=== PATIENT | female | born 1985 | race Caucasian/White ===

== ENCOUNTER → 2016-11-17 | Outpatient (REF) | payer BC | LOC: M LAB REF 19:34 | PROVIDERS: ATTEND Physician Assistant Medical | DX: J02.9 Acute pharyngitis, unspecified (principal) ==

== ENCOUNTER → 2017-10-25 | Outpatient (REF) | payer BC | LOC: M LAB REF 16:37 | PROVIDERS: ATTEND Physician Assistant Medical | DX: R53.83 Other fatigue (principal) ==

== ENCOUNTER → 2017-12-24 | Outpatient (REF) | payer BC | LOC: M LAB REF 12:11 | DX: R30.0 Dysuria (principal) | CPT/HCPCS: 87086 ==

== ENCOUNTER → 2017-12-29 | Outpatient (CLI) | payer BC | LOC: M SMT 08:30 | DX: R10.2 Pelvic and perineal pain (principal) | CPT/HCPCS: 76830 ==

== ENCOUNTER → 2018-01-11 | Outpatient (REF) | payer BC ==
[2018-01-14 00:07] LABS: HPV HYBRID CAPTURE II Negative (Negative)
== END ==
LOC: M LAB REF 19:14
DX: Z12.4 Encounter for screening for malignant neoplasm of cervix (principal)
CPT/HCPCS: G0123

== ENCOUNTER → 2018-03-29 | Outpatient (CLI) | payer BC | LOC: M EKG 09:43 | DX: I10 Essential (primary) hypertension (principal) | CPT/HCPCS: 93005 ==

== ENCOUNTER 2018-04-08 05:49 | Day surgery (SDC) | payer BC ==
[2018-04-08] MEDS ORDERED: LIDOCAINE 1% MDV 20ML VIAL SQ (06:15)
[2018-04-08 06:26] LABS: HEMATOCRIT 39.4 % (36.0-47.0); MEAN CORPUSCULAR HEMOGLOBIN 27.4 pg (27.0-33.0); MEAN CORPUSCULAR VOLUME 82.9 fl (80.0-96.0); PLATELET COUNT, AUTOMATED 288 10^3/uL (150-450); RED BLOOD COUNT 4.75 10^6/uL (4.00-5.40); RED CELL DISTRIBUTION WIDTH 14.1 % (11.5-14.5); WHITE BLOOD COUNT 8.2 10^3/uL (4.0-10.0)
[2018-04-08 06:41] LABS: CONTROL LINE HCG INT CTR LINE PRESENT; HCG, SERUM QUALITATIVE NEGATIVE (NEGATIVE)
[2018-04-08] MEDS: LR 1,000 ML IV ×3 (07:07→12:51)
[2018-04-08] MEDS ORDERED: ROCURONIUM BROMIDE 50 MG/5 ML VIAL As Ordered ×2 (07:18→08:22)
[2018-04-08] MEDS ORDERED: dexameTHASONE 4 MG/ML 1ML VIAL (J1100) As Ordered (07:18)
[2018-04-08] MEDS ORDERED: LIDOCAINE 2% INJ 100 MG/5 ML SDV (FOR ANES.) As Ordered (07:18)
[2018-04-08] MEDS ORDERED: PROPOFOL 200 MG/20 ML VIAL As Ordered (07:18)
[2018-04-08] MEDS ORDERED: fentaNYL 250 MCG/5 ML INJECTION (J3010) As Ordered (07:19)
[2018-04-08] MEDS ORDERED: MIDAZOLAM INJ 2 MG/2 ML VIAL (J2250) As Ordered (07:19)
[2018-04-08] MEDS ORDERED: KETOROLAC 60 MG/2 ML VIAL (J1885) As Ordered (08:55)
[2018-04-08] MEDS ORDERED: NEOSTIGMINE 10 MG/10 ML VIAL (J2710) As Ordered (08:55)
[2018-04-08] MEDS ORDERED: GLYCOPYRROLATE INJ 0.2 MG/ML 2 ML VIAL As Ordered (08:55)
[2018-04-08] MEDS ORDERED: HYDROmorphone HCL 2 MG/ML 1ML VIAL (J1170) As Ordered ×2 (08:56→11:53)
[2018-04-08] MEDS ORDERED: ONDANSETRON 4MG/2ML VIAL (J2405) As Ordered (09:28)
[2018-04-08] MEDS: BUPIVACAINE HCL 0.25% 30 ML VIAL As Ordered (09:50)
[2018-04-08] MEDS: METHYLENE BLUE 0.5% (5MG/ML) 10 ML AMP (PROVAYBLUE)(Q9968 PER 1MG) As Ordered (10:12)
[2018-04-08] MEDS ORDERED: METOCLOPRAMIDE INJ 10MG/2ML VIAL (J2765) As Ordered (10:25)
[2018-04-08] MEDS: METOCLOPRAMIDE INJ 10MG/2ML VIAL (J2765) IV (10:30)
[2018-04-08] MEDS ORDERED: PERCOCET 5MG/325MG TAB PO ×2 (10:45)
[2018-04-08] MEDS ORDERED: MORPHINE 4 MG/ML 1ML VIAL/SYRINGE (J2270) IV (10:45)
[2018-04-08] MEDS ORDERED: PROMETHAZINE INJ 25 MG/ML VIAL (J2550) IV (10:45)
[2018-04-08] MEDS ORDERED: fentaNYL 100 MCG/2 ML INJECTION (J3010) IV (10:45)
[2018-04-08] MEDS ORDERED: ONDANSETRON 4MG/2ML VIAL (J2405) IV (10:45)
[2018-04-08] MEDS ORDERED: zolPIDEM TARTRATE 5 MG TAB PO (10:45)
[2018-04-08] MEDS ORDERED: ePHEDrine SULFATE 25 MG/5 ML(5MG/ML) SYRINGE As Ordered (11:13)
[2018-04-08] MEDS: PERCOCET 5MG/325MG TAB PO (12:52)
[2018-04-08] MEDS: KETOROLAC 30 MG/ML VIAL (J1885) IV (15:57)
== END 2018-04-08 19:35 | disposition home or self-care (01) ==
LOC: M SDC 05:49 → M PED 12:00
DX: R10.2 Pelvic and perineal pain (principal); D25.1 Intramural leiomyoma of uterus; D25.2 Subserosal leiomyoma of uterus; N83.12 Corpus luteum cyst of left ovary; N83.11 Corpus luteum cyst of right ovary; I10 Essential (primary) hypertension; F41.9 Anxiety disorder, unspecified; E28.2 Polycystic ovarian syndrome; Z79.899 Other long term (current) drug therapy
CPT/HCPCS: 58571

== ENCOUNTER → 2018-08-12 | Outpatient (REF) | payer BC ==
[2018-08-12 20:28] LABS: APPEARANCE, URINE CLEAR (CLEAR); BACTERIA, URINE AUTO NEGATIVE (NEGATIVE); BILIRUBIN, URINE AUTO NEGATIVE (NEGATIVE); BLOOD, URINE BLOOD NEGATIVE (NEGATIVE); COLOR, URINE STRAW (YELLOW); GLUCOSE, URINE (UA) AUTO NEGATIVE (NEGATIVE); KETONE, URINE AUTO NEGATIVE (NEGATIVE); LEUKOCYTE ESTERASE, URINE AUTO NEGATIVE (NEGATIVE); MUCUS, URINE SMALL (NEGATIVE); NITRITE, URINE AUTO NEGATIVE (NEGATIVE); PROTEIN, URINE AUTO NEGATIVE (NEGATIVE); RBC, URINE AUTO 0 /HPF (0-3); SPECIFIC GRAVITY URINE AUTO 1.008 (1.002-1.035); SQUAMOUS EPITHELIAL CELL UR AU 0 /HPF (0-6); UROBILINOGEN, URINE AUTO 0.2 mg/dL (0.0-2.0); WBC, URINE AUTO 0 /HPF (0-3)
== END ==
LOC: M LAB REF 16:42
DX: N39.0 Urinary tract infection, site not specified (principal)
CPT/HCPCS: 81001

== ENCOUNTER 2018-12-02 10:18 | Emergency (ER) | payer BC ==
[~2018-12-02] VITALS: Ht 172.7 cm; Wt 123.6 kg
[~2018-12-02 10:18] MED LIST: ALPR1TAB3; BUSP15TA47; HYDR25TAB; LISI40TA; METF500T13; OXYC1TAB23 PO; PERCOCET PO; SERT-138; SPIR50TA4
[2018-12-02] MEDS ORDERED: KETOROLAC 30 MG/ML VIAL (J1885) IV ONE (10:45)
[2018-12-02] MEDS ORDERED: ONDANSETRON 4MG/2ML VIAL (J2405) IV ONE (10:45)
[2018-12-02] MEDS ORDERED: NS 1,000 ML IV ONE (10:45)
--- NOTE | 2018-12-02 11:14 | REP ---
CT pelvis without IV or oral contrast: History: Left flank pain. Comparison CT study is from August 22, 2015. CT findings: Preliminary digital concrete bucket unloader radiograph demonstrates an unremarkable bowel gas pattern. The lung bases are clear on axial CT images. The liver is normal in size homogeneous in texture. Spleen is unremarkable. No adrenal lesion is seen on either side. No pancreatic lesion is observed. Gallbladder is unremarkable on this noncontrast CT study. No retroperitoneal mass or adenopathy is observed. There is no evidence of hydronephrosis or intrarenal calculus on either side. No renal mass or cyst is apparent. No ureteral stone or bladder calculus is seen. Small and large intestinal bowel loops are normal in the upper abdomen. The uterus is surgically absent. There is a small cystic area in the right ovary, 2.8 cm in diameter. The appendix is not seen but there are no inflammatory changes in the region of the cecal tip. Urinary bladder is largely empty but unremarkable. No bony destructive lesion is appreciated. Impression: No urinary tract calculus or hydronephrosis seen. Small cystic area right ovary. Post hysterectomy. Electronically Signed by Avni Gayle MD 12/02/2018 11:05 A
[2018-12-02 11:39] LABS: BASO # 0.1 10^3/uL (0.0-0.2); BASO % 0.7 % (0.0-1.0); EOS # 0.4 10^3/uL (0.0-0.50); EOS % 4.9 % (0.0-3.0); HEMATOCRIT 40.3 % (36.0-47.0); HEMOGLOBIN 13.2 g/dl (12.0-15.5); LYMPH # 1.7 10^3/uL (1.5-4.5); LYMPH % 21.7 % (24.0-44.0); MEAN CORPUSCULAR HEMOGLOBIN 27.5 pg (27.0-33.0); MEAN CORPUSCULAR HGB CONC 32.8 g/dl (32.0-36.5); MONO # 0.4 10^3/uL (0.0-0.8); MONO % 5.2 % (0.0-5.0); NEUTROPHILS # 5.2 10^3/uL (1.8-7.7); NEUTROPHILS % 67.2 % (36.0-66.0); PLATELET COUNT, AUTOMATED 356 10^3/uL (150-450); WHITE BLOOD COUNT 7.7 10^3/uL (4.0-10.0)
[2018-12-02 12:23] LABS: ALBUMIN 3.7 GM/DL (3.2-5.2); ALT/SGPT 35 U/L (12-78); AMYLASE 31 U/L (25-115); BILIRUBIN,DIRECT < 0.1 MG/DL (0.0-0.2); BILIRUBIN,TOTAL 0.2 MG/DL (0.2-1.0); BLOOD UREA NITROGEN 16 MG/DL (7-18); CALCIUM LEVEL 8.9 MG/DL (8.5-10.1); CARBON DIOXIDE LEVEL 24 MEQ/L (21-32); CHLORIDE LEVEL 102 MEQ/L (98-107); CREATININE FOR GFR 0.74 MG/DL (0.55-1.30); GLOMERULAR FILTRATION RATE > 60.0 (>60); GLUCOSE, FASTING 99 MG/DL (70-100); LIPASE 121 U/L (73-393); POTASSIUM SERUM 4.6 MEQ/L (3.5-5.1); SODIUM LEVEL 137 MEQ/L (136-145); TOTAL PROTEIN 7.5 GM/DL (6.4-8.2)
[2018-12-02] MEDS ORDERED: ROBA500T PO (12:56)
[2018-12-02] MEDS ORDERED: NAPR-885 PO (12:56)
[2018-12-02 12:58] VITALS: BP 120/72
== END 2018-12-02 13:07 | disposition home or self-care (01) ==
LOC: M ED 10:18
DX: R10.9 Unspecified abdominal pain (principal); I10 Essential (primary) hypertension; E28.2 Polycystic ovarian syndrome; F41.9 Anxiety disorder, unspecified; Z79.899 Other long term (current) drug therapy; Z88.1 Allergy status to other antibiotic agents; Z88.2 Allergy status to sulfonamides; Z88.8 Allergy status to other drugs, medicaments and biological substances
CPT/HCPCS: 74176; 80048; 80076; 81001; 82150; 83690; 85025; 96361; 96374; 96375; 99284; J1885; J2405

== ENCOUNTER → 2019-05-03 | Outpatient (REF) | payer BC ==
[~2019-05-03] MED LIST changes: +NAPR-885 PO; +ROBA500T PO
[2019-05-03 13:17] LABS: FOLLICLE STIMULATING HORMONE 15.2 mIU/mL; LUTEINIZING HORMONE 22.1 mIU/mL
== END ==
LOC: M LAB REF 12:28
PROVIDERS: ATTEND Internal Medicine
DX: R61 Generalized hyperhidrosis (principal)

== ENCOUNTER → 2019-05-09 | Outpatient (CLI) | payer BC ==
--- NOTE | 2019-05-09 11:27 | REP ---
Clinical: Pelvic pain. Technique: Transabdominal and transvaginal ultrasound examination with color Doppler evaluation of the ovaries. Findings: The patient is known to be status post hysterectomy and left oophorectomy. Right ovary measures 6.4 x 3.6 x 4.2 cm and includes two complex cystic lesions measuring 4.0 x 3.3 x 3.8 cm and 2.5 x 2.3 x 2.5 cm which may represent hemorrhagic cysts although differential diagnosis may include dermoid/teratoma. Doppler evaluation to the right ovary is normal and without evidence for torsion (RI 0.45). No pelvic fluid or adnexal mass. The bladder appears normal and measures 10.1 x 7.0 x 7.5 cm. Impression: 1. Evidence for prior hysterectomy and left oophorectomy. 2. Two complex lesions within the right ovary as described above may represent complex physiologic cyst / hemorrhagic cyst. Follow-up in 4-6 weeks to evaluate for resolution may be warranted. Electronically Signed by Navjot Aguila MD 05/09/2019 11:19 A
== END ==
LOC: M RAD 10:40
PROVIDERS: ATTEND Obstetrics & Gynecology
DX: R10.2 Pelvic and perineal pain (principal); Z90.710 Acquired absence of both cervix and uterus; Z90.721 Acquired absence of ovaries, unilateral; N83.8 Other noninflammatory disorders of ovary, fallopian tube and broad ligament

== ENCOUNTER 2019-05-22 11:56 | Emergency (ER) | payer BC ==
[~2019-05-22] VITALS: Ht 172.7 cm; Wt 127.3 kg
[2019-05-22] MEDS ORDERED: IBUP-1091 PO (14:28)
[2019-05-22 15:02] LABS: BASO # 0.1 10^3/uL (0.0-0.2); BASO % 0.7 % (0.0-1.0); EOS # 0.1 10^3/uL (0.0-0.50); EOS % 1.3 % (0.0-3.0); HEMATOCRIT 42.4 % (36.0-47.0); HEMOGLOBIN 13.8 g/dl (12.0-15.5); LYMPH # 1.8 10^3/uL (1.5-4.5); LYMPH % 20.5 % (24.0-44.0); MEAN CORPUSCULAR HEMOGLOBIN 27.8 pg (27.0-33.0); MEAN CORPUSCULAR HGB CONC 32.5 g/dl (32.0-36.5); MEAN CORPUSCULAR VOLUME 85.3 fl (80.0-96.0); MONO # 0.6 10^3/uL (0.0-0.8); MONO % 6.5 % (0.0-5.0); NEUTROPHILS # 6.2 10^3/uL (1.8-7.7); NEUTROPHILS % 70.7 % (36.0-66.0); PLATELET COUNT, AUTOMATED 311 10^3/uL (150-450); RED BLOOD COUNT 4.97 10^6/uL (4.00-5.40); WHITE BLOOD COUNT 8.8 10^3/uL (4.0-10.0)
[2019-05-22] MEDS ORDERED: ONDANSETRON 4MG/2ML VIAL (J2405) IV ONE (15:15)
[2019-05-22] MEDS ORDERED: KETOROLAC 30 MG/ML VIAL (J1885) IV ONE (15:15)
[2019-05-22 15:28] LABS: HCG, SERUM QUALITATIVE NEGATIVE (NEGATIVE)
[2019-05-22 15:30] LABS: ALBUMIN 3.8 GM/DL (3.2-5.2); ALT/SGPT 28 U/L (12-78); BILIRUBIN,DIRECT < 0.1 MG/DL (0.0-0.2); BILIRUBIN,TOTAL 0.2 MG/DL (0.2-1.0); BLOOD UREA NITROGEN 15 MG/DL (7-18); CALCIUM LEVEL 8.8 MG/DL (8.5-10.1); CARBON DIOXIDE LEVEL 28 MEQ/L (21-32); CHLORIDE LEVEL 103 MEQ/L (98-107); CREATININE FOR GFR 0.78 MG/DL (0.55-1.30); GLOMERULAR FILTRATION RATE > 60.0 (>60); GLUCOSE, FASTING 85 MG/DL (70-100); LIPASE 82 U/L (73-393); POTASSIUM SERUM 4.1 MEQ/L (3.5-5.1); SODIUM LEVEL 138 MEQ/L (136-145); TOTAL PROTEIN 7.6 GM/DL (6.4-8.2)
[2019-05-22] MEDS ORDERED: ZOFR8TAB24 PO (17:34)
[2019-05-22] MEDS ORDERED: IBUP-1022 PO (17:34)
[2019-05-22 17:39] VITALS: BP 106/54
--- NOTE | 2019-05-22 18:31 | REP ---
PELVIC ULTRASOUND: Real-time sonographic evaluation of the pelvis was performed utilizing transabdominal and endovaginal technique. The bladder measures 6.4 x 7.9 x 3.4 cm. The patient has had a prior hysterectomy and left salpingo-oophorectomy. The right ovary measures 5.3 x 3.0 x 3.1 cm. The simple cyst in the right ovary measures 3.1 x 2.5 x 2.8 cm. Two complex follicles are seen as well in the right ovary, measuring 1.6 x 1.0 x 1.5 cm and 1.4 x 0.9 x 0.9 cm. There is no torsion of the right ovary, resistive index 0.51. No free fluid is seen. Electronically Signed by Long Ma MD 05/23/2019 11:11 A
[2019-05-26] MEDS ORDERED: OXYC1TAB23 PO (12:07)
== END 2019-05-22 17:44 | disposition home or self-care (01) ==
LOC: M ED 11:56
DX: N83.00 Follicular cyst of ovary, unspecified side (principal); I10 Essential (primary) hypertension; F41.9 Anxiety disorder, unspecified; Z87.59 Personal history of other complications of pregnancy, childbirth and the puerperium; Z87.440 Personal history of urinary (tract) infections; Z79.899 Other long term (current) drug therapy; Z88.2 Allergy status to sulfonamides; Z88.1 Allergy status to other antibiotic agents; Z88.8 Allergy status to other drugs, medicaments and biological substances
CPT/HCPCS: 76830; 76856; 80048; 80076; 81001; 83690; 84703; 85025; 93976; 96374; 96375; 99284; J1885; J2405

== ENCOUNTER → 2019-07-03 | Outpatient (CLI) | payer BC ==
[~2019-07-03] MED LIST changes: +IBUP-1022 PO; +IBUP-1091 PO; +ZOFR8TAB24 PO
--- NOTE | 2019-07-03 13:59 | REP ---
REASON FOR EXAM: History of ovarian cyst on the right. COMPARISON: 05/22/2019 which showed a 3.1 cm sized right ovarian cyst. Transvesical and transvaginal imaging was obtained. The uterus has been surgically removed. The right ovary measures 2.8 x 2.3 x 2.0 cm. The 3.1 cm sized cyst seen previously has resolved. The left ovary has been surgically removed. The urinary bladder measures 6.0 x 4.0 x 9.0 cm. IMPRESSION: The 3.0 cm sized right ovarian cyst seen on the prior exam has resolved. Electronically Signed by Cuong Mcginnis DO 07/03/2019 02:07 P
== END ==
LOC: M RAD 08:36
PROVIDERS: ATTEND Obstetrics & Gynecology
DX: N83.291 Other ovarian cyst, right side (principal)

== ENCOUNTER → 2019-08-01 | Outpatient (REF) | payer BC ==
[~2019-08-01] MED LIST changes: +AUGM875T28 PO; -BUSP15TA47; +BUSP15TA47 PO; -HYDR25TAB; +HYDR25TAB PO; -IBUP-1091 PO; +IBUP-1720 PO; -LISI40TA; +LISI40TA PO; +MICR1TAB18 PO; -SERT-138; +SERT-138 PO; -SPIR50TA4; +SPIR50TA4 PO; +TRAM50TA2 PO
== END ==
LOC: M LAB REF 12:23
PROVIDERS: ATTEND Physician Assistant Medical
DX: J02.9 Acute pharyngitis, unspecified (principal)

== ENCOUNTER 2019-09-04 13:44 | Emergency (ER) | payer BC ==
[~2019-09-04] VITALS: Ht 172.7 cm; Wt 131.3 kg
[~2019-09-04 13:44] MED LIST changes: -FLUC150T PO; -KEFL500C17 PO; -PROM50TA4 PO
[2019-09-04] MEDS ORDERED: ONDANSETRON 4 MG ORAL DISINTEGRATING TAB (Q0162 PER 1MG) PO ONE (14:45)
[2019-09-04 15:06] LABS: BASO # 0.1 10^3/uL (0.0-0.2); BASO % 0.5 % (0.0-1.0); EOS # 0.1 10^3/uL (0.0-0.5); HEMATOCRIT 39.1 % (36.0-47.0); HEMOGLOBIN 12.8 g/dl (12.0-15.5); LYMPH # 1.8 10^3/uL (1.5-5.0); LYMPH % 16.5 % (24.0-44.0); MEAN CORPUSCULAR HEMOGLOBIN 27.9 pg (27.0-33.0); MEAN CORPUSCULAR HGB CONC 32.7 g/dl (32.0-36.5); MEAN CORPUSCULAR VOLUME 85.4 fl (80.0-96.0); MONO # 0.7 10^3/uL (0.0-0.8); NEUTROPHILS # 8.3 10^3/uL (1.5-8.5); NEUTROPHILS % 75.7 % (36.0-66.0); PLATELET COUNT, AUTOMATED 344 10^3/uL (150-450); RED BLOOD COUNT 4.58 10^6/uL (4.00-5.40)
[2019-09-04 15:35] LABS: ALBUMIN 3.3 GM/DL (3.2-5.2); ALT/SGPT 22 U/L (12-78); BILIRUBIN,DIRECT < 0.1 MG/DL (0.0-0.2); BILIRUBIN,TOTAL 0.3 MG/DL (0.2-1.0); LIPASE 67 U/L (73-393)
[2019-09-04] MEDS ORDERED: PROMETHAZINE 25 MG TAB PO ONE (16:15)
[2019-09-04] MEDS ORDERED: KEFL500C17 PO (16:18)
[2019-09-04] MEDS ORDERED: PROM50TA4 PO (16:26)
[2019-09-04] MEDS ORDERED: FLUC150T PO (16:27)
[2019-09-04 16:37] VITALS: BP 120/75
--- NOTE | 2019-09-04 17:01 | REP ---
REASON FOR EXAM: Flank pain on the right, assess for renal calculi. COMPARISON: 12/02/2018 and 08/22/2015. The lung bases are clear and unchanged. Limited evaluation of the solid intraabdominal organs and gallbladder show no gross abnormalities or significant changes from the prior exam. Limited evaluation of the pancreas and adrenal glands show no gross abnormalities or significant changes from the prior exam. Limited evaluation of the left kidney shows no evidence of a gross change from the prior exam and no evidence of abnormalities. There is mild right renal enlargement and perirenal stranding seen in conjunction with mild right sided hydronephrosis and hydroureter. The hydroureter is seen with the periureteral edema, however, I can not confirm a definite ureterolith. There are no urinary bladder calcifications. Limited evaluation of the abdominal aorta and paraaortic regions showed no gross abnormalities. There is no free fluid or free air in the abdomen. The intraabdominal bowel loops are unremarkable. CT PELVIS: In the right hemipelvis there is a mass which measures approximately 5.8 x 3.2 cm and having water density Hounsfield unit readings. The bowel loops are unremarkable. The osseous structures are stable and intact. IMPRESSION:1. There is mild right sided hydronephrosis with hydroureter and periureteral and perirenal edema as described above of uncertain etiology. The finding could represent changes from a past nephrolith. This needs to be correlated clinically. Consider followup if clinically relevant. Since no intravenous contrast was administered I can not completely rule out the possibility of infectious etiology. 2. Bilobed low density right adnexal mass most likely ovarian origin. Consider followup with pelvic ultrasound. Electronically Signed by Cuong Mcginnis DO 09/05/2019 10:25 A
--- NOTE | 2019-09-06 14:25 | ED PDOC ---
Post-Departure Follow-Up uriel hernandez faxed formal report of ct abd/p for fu Chelo Cole MD Sep 06, 2019 14:25
== END 2019-09-04 16:40 | disposition home or self-care (01) ==
LOC: M ED 13:44
DX: N39.0 Urinary tract infection, site not specified (principal); N13.30 Unspecified hydronephrosis; R19.09 Other intra-abdominal and pelvic swelling, mass and lump; I10 Essential (primary) hypertension; Z79.899 Other long term (current) drug therapy; Z87.42 Personal history of other diseases of the female genital tract; Z98.890 Other specified postprocedural states; Z80.41 Family history of malignant neoplasm of ovary; Z90.710 Acquired absence of both cervix and uterus; Z88.2 Allergy status to sulfonamides; Z88.8 Allergy status to other drugs, medicaments and biological substances; Z88.1 Allergy status to other antibiotic agents
CPT/HCPCS: 36415; 74176; 80047; 80076; 81001; 83690; 85025; 87088; 87186; 99283; Q0162

== ENCOUNTER → 2019-09-04 | Outpatient (REF) | payer BC ==
[~2019-09-04] MED LIST changes: +FLUC150T PO; +KEFL500C17 PO; +MULT1TAB7 PO; +PROM50TA4 PO
--- NOTE | 2019-09-04 18:55 | CR ---
DATE OF CONSULTATION: 09/04/2019 This is a preoperative consultation for Dr. Blevins for laparoscopic right salpingo-oophorectomy 09/08/[address] Blevins at [facility] ([facility]). Dear Gen, Thank you for asking me to see Ms. Yashira Polo in consultation prior to her laparoscopic right salpingo-oophorectomy. Ms. Polo is, as you know, a 34-year-old female with a past medical history of hypertension, obesity, anxiety, polycystic ovarian syndrome (PCOS), presenting for preoperative optimization. The patient reports she has been in her usual state of health, except since November she has been to the emergency room (ER) four times with severe pelvic pain, felt to be secondary to ruptured ovarian cyst. She reports that she feels as if she has a bladder infection, but last time this was a cyst pushing on her bladder. She reports pelvic pressure, mild urgency, frequency, dysuria, but tolerable. The patient notes 04/08/2018 she had a hysterectomy with left oophorectomy secondary to fibroids and PCOS. She had hold that she could leave her right ovary in, but pain is progressing. She looks forward to having her surgery, getting back to real life. She reports that because of the pain, she has been less active and has gained more weight. The patient also notes anxiety has been worse. She is maintained on Xanax at bedtime in addition to her sertraline 100 mg daily. Uses Xanax predominantly for sleep. Feels anxious throughout the day. The patient has allergic rhinitis, taking Josie daily, Flonase sporadically. Does have congestion. The patient has hypertension. Her recently developed uncontrolled hypertension, and they have gone on a low-salt diet. Notes her blood pressures are quite low. The patient does have some left knee pain. Apparently she needs replacement, but she has been told by orthopedics she needs to wait until she is at least 38. The patient otherwise denies any fevers or chills, chest pain or shortness of breath, nausea, vomiting, change in bowels. PAST MEDICAL HISTORY. 1. Anxiety. 2. PCOS. 3. Hypertension. 4. Osteoarthritis (OA), degenerative joint disease (DJD), left knee, status post arthroscopy and medial meniscectomy 07/12/2008. 4. G1, P0, TAB 1. 5. Morbid obesity. 6. Seasonal allergic rhinitis. 7. Migraines. 8. Fibrocystic breast disease. 9. Hysterectomy with left oophorectomy 04/08/2018 secondary to fibroids , irregular menses, PCOS. MEDICATIONS: - Xanax 1 mg at bedtime - fexofenadine 60 mg daily - fluticasone as needed - ibuprofen 800 mg, one to two times a day for knee pain and ovarian cyst pain - lisinopril 40 mg daily - multivitamin daily - probiotic daily - sertraline 100 mg daily - spironolactone 25 mg two daily - hydrochlorothiazide 25 mg one-half daily - vitamin C daily The patient's drug allergies are to MACROBID, SULFA, CIPRO, all causing anaphylaxis. She has a drug intolerance to LEXAPRO. SOCIAL HISTORY: Works at [email or web address]. . No children. Enjoys dog, cat, reading, and writing. Never smoked. Occasional alcohol. FAMILY HISTORY: Mother has arthritis and heart valve issues. Father at 52 of a brain aneurysm. A sister with depression. Grandparents had congestive heart failure (CHF), heart disease, sleep apnea, bipolar, breast cancer, ovarian cancer, and stroke. PHYSICAL EXAMINATION Obese female in no acute distress. VITAL SIGNS: Weight 285 with a body mass index (BMI) of 44, blood pressure 96/60, heart rate 97, oxygen saturation is 97% after exertion. HEENT: Head is normocephalic. Neck is supple. Pupils equal, reactive to light. External movements are intact. No jugular venous distention (JVD), thyromegaly, or carotid bruits. No cervical lymphadenopathy. RESPIRATORY: Clear to auscultation, resonant to percussion. CARDIOVASCULAR: Regular rate and rhythm. No murmur, rub, gallop. BREASTS: Exam deferred. ABDOMEN: Normoactive bowel sounds, soft, nontender. No hepatosplenomegaly. EXTREMITIES: No cyanosis, clubbing, or edema. DERMATOLOGIC: No lesions. NEUROLOGIC: Alert and oriented. Cranial nerves II-XII intact. Reflexes symmetric. LABORATORY DATA: EKG 09/03/2019: Normal sinus rhythm, rate of 97, axis of -7, normal [place], QRS, QTC. Late R-wave progression, diffuse T-wave flattening. No significant change compared to previous EKG. Labs show normal CBC, liver, metabolic profile, but urinalysis (UA) showing moderate leukocytes, moderate blood, 2+ protein, positive nitrites. IMPRESSION: Ms. Yashira Polo is a 34-year-old female with cardiovascular risk factors positive for obesity, hypertension, family history who has no signs or symptoms indicative of cardiovascular ischemia and is felt to be at low risk for cardiovascular complications from the proposed surgical intervention, which can be further minimized by the following. 1. Hypertension. Since giving up salt, blood pressures have been quite low. I have asked her to discontinue hydrochlorothiazide, lower spironolactone to 25 in the morning, and take none of her antihypertensives the morning of surgery. She will followup here as already scheduled in 6 weeks. 2. Dysthymia. The patient will take her sertraline as usual morning of surgery. I have also added buspirone 15 mg one-third to one-half by mouth twice a day. Will followup here in 6 weeks. She has had more anxiety recently. She will continue to the Xanax at bedtime. 3. Polycystic ovarian disease (PCOD). She is on spironolactone. I have lowered the dose because of hypotension. She will not take this morning of surgery/ 4. Allergic rhinitis. She will take her Josie and Flonase daily before surgery and morning of surgery. 5. Obesity. Encouragement given. Support given. 6. Probable cystitis. Culture pending. Will empirically treat. The patient has multiple drug allergies. Consider Keflex 500 by mouth twice a day. Will adjust if indicated when culture returns. Will communicate this with Dr. Blevins as well. 7. Osteoarthritis (OA), degenerative joint disease (DJD). Minimize ibuprofen this next 5 days prior to surgery. Replace with Tylenol. Thank you very much for this consultation. Please call with questions or concerns.
== END ==
LOC: M LAB REF 17:05
PROVIDERS: ATTEND Internal Medicine
DX: N39.0 Urinary tract infection, site not specified (principal)

== ENCOUNTER 2019-09-08 08:35 | Day surgery (SDC) | payer BC ==
[~2019-09-08] VITALS: Ht 172.7 cm; Wt 126.6 kg
[~2019-09-08 08:35] MED LIST changes: +FLUC150T PO; +KEFL500C17 PO; +LR 1,000 ML IV ONE; +PROM50TA4 PO
[2019-09-08 09:07] LABS: HEMATOCRIT 38.5 % (36.0-47.0); HEMOGLOBIN 12.4 g/dl (12.0-15.5); MEAN CORPUSCULAR HEMOGLOBIN 27.4 pg (27.0-33.0); MEAN CORPUSCULAR HGB CONC 32.2 g/dl (32.0-36.5); MEAN CORPUSCULAR VOLUME 85.2 fl (80.0-96.0); PLATELET COUNT, AUTOMATED 336 10^3/uL (150-450); RED BLOOD COUNT 4.52 10^6/uL (4.00-5.40); WHITE BLOOD COUNT 6.1 10^3/uL (4.0-10.0)
[2019-09-08] MEDS ORDERED: SCOPOLAMINE 1MG TRANSDERMAL PATCH TOP ONE (09:45)
[2019-09-08] MEDS ORDERED: BUPIVACAINE HCL 0.25% 30 ML VIAL As Ordered ONE (09:55)
[2019-09-08] MEDS ORDERED: SUGAMMADEX SODIUM 500 MG/5 ML VIAL (BRIDION) As Ordered ONE (10:21)
[2019-09-08] MEDS ORDERED: PROPOFOL 200 MG/20 ML VIAL As Ordered ONE (10:21)
[2019-09-08] MEDS ORDERED: HYDROmorphone HCL 2 MG/ML 1ML VIAL (J1170) As Ordered ONE (10:21)
[2019-09-08] MEDS ORDERED: LIDOCAINE 2% INJ 100 MG/5 ML SDV (FOR ANES.) As Ordered ONE (10:21)
[2019-09-08] MEDS ORDERED: MIDAZOLAM INJ 2 MG/2 ML VIAL (J2250) As Ordered ONE (10:21)
[2019-09-08] MEDS ORDERED: dexameTHASONE 4 MG/ML 1ML VIAL (J1100) As Ordered ONE (10:21)
[2019-09-08] MEDS ORDERED: fentaNYL 100 MCG/2 ML INJECTION (J3010) As Ordered ONE (10:21)
[2019-09-08] MEDS ORDERED: ROCURONIUM BROMIDE 50 MG/5 ML VIAL As Ordered ONE (10:21)
[2019-09-08] MEDS ORDERED: ONDANSETRON 4MG/2ML VIAL (J2405) As Ordered ONE ×2 (10:44→11:32)
[2019-09-08] MEDS ORDERED: KETOROLAC 60 MG/2 ML VIAL (J1885) As Ordered ONE (10:44)
[2019-09-08] MEDS ORDERED: PHENYLephrine HCL 500 MCG/5 ML (100MCG/ML) SYRINGE (J2370) As Ordered ONE (10:58)
[2019-09-08] MEDS ORDERED: OXYC1TAB23 PO (11:45)
[2019-09-08] MEDS ORDERED: oxyCODONE 5MG TAB PO PRN (11:45)
[2019-09-08] MEDS ORDERED: LR 1,000 ML IV SCH (11:45)
[2019-09-08] MEDS ORDERED: METOCLOPRAMIDE INJ 10MG/2ML VIAL (J2765) IV PRN (11:45)
[2019-09-08] MEDS ORDERED: ONDANSETRON 4MG/2ML VIAL (J2405) IV PRN (11:45)
[2019-09-08] MEDS ORDERED: HYDROMORPHONE HCL 0.5 MG/ 0.5 ML SYRINGE (J1170 PER 1) IV PRN (11:45)
[2019-09-08] MEDS: fentaNYL 100 MCG/2 ML INJECTION (J3010) IV PRN ×3 (11:51→12:05)
[2019-09-08] MEDS ORDERED: PERCOCET 5MG/325MG TAB PO PRN (12:00)
--- NOTE | 2019-09-08 12:30 | RO ---
DATE OF PROCEDURE: 09/08/2019 PREOPERATIVE DIAGNOSIS: Chronic pelvic pain. POSTOPERATIVE DIAGNOSES: Chronic pelvic pain. PROCEDURE PERFORMED: Diagnostic operative laparoscopy with right salpingo-oophorectomy. SURGEON: Amber Blevins MD ROOF BOLTING COAL MINER: Maribeth Carrillo NP ANESTHESIA: General endotracheal anesthesia. ESTIMATED BLOOD LOSS: 5 mL. INTRAVENOUS FLUIDS: 1200 mL. URINE OUTPUT: 400 mL. SPECIMENS: Right fallopian tube and ovary. PREOPERATIVE ANTIBIOTICS: None. INFECTION CLASSIFICATION: 1. OPERATIVE FINDINGS: Patient with normal-appearing right adnexa. DESCRIPTION OF OPERATION: After informed consent was obtained and written consent was reviewed, the patient was brought to the operating room where general endotracheal anesthesia was obtained. Colin catheter was then placed and set to gravity. She was then prepped and draped in a normal sterile fashion. A time out in the operating room was then performed identifying the patient, procedure be performed, as well as drug allergies. Attention was then turned to the patient's abdomen where 0.25% Marcaine was infused in the umbilical region. This area was incised and an 11-mm trocar sleeve was advanced through this incision. The laparoscope was then replaced revealing intra-abdominal placement. Pneumoperitoneum was then obtained with CO2 gas. The abdomen was then surveyed showing normal appearing right adnexa. Two accessory port sites were placed, each one to each side of the umbilicus. These areas were infused with 0.25% Marcaine. Each one of these areas were incised. 5 mm trocars and sleeves advanced through each one of these incisions under direct visualization. Attention was then turned to the patient's right adnexa, which was placed in traction. The right infundibulum pelvic ligament was then cauterized and ligated using Harmonic Dalton scalpel device. Good hemostasis was then noted. The specimen was then placed in EndoCatch bag was removed at the umbilical port. The surgical sites again were reinspected and noted be hemostatic. The umbilical port fascia was then closed using Roc-Ed system with 0 Vicryl. Pneumoperitoneum was then released. Instruments were removed from the patient's abdomen. Trocars were removed. The skin incisions for the three port sites were then closed with 4-0 Monocryl was dressed with Dermabond. Colin catheter was then removed. The patient was then awakened from general anesthesia and taken to recovery in stable condition. My ophthalmology surgical technician played an essential role during the operation. She assisted with port placement, tissue retraction, identification of structures, as well as removal of specimen. The counts were correct.
[2019-09-08 14:00] VITALS: BP 124/74
[2019-09-08] MEDS ORDERED: KETOROLAC 30 MG/ML VIAL (J1885) IV SCH (17:00)
[2019-09-13] MEDS ORDERED: OXYC1TAB23 PO (15:59)
== END 2019-09-08 14:35 | disposition home or self-care (01) ==
LOC: M SDC 08:35
PROVIDERS: ATTEND Obstetrics & Gynecology
DX: N83.01 Follicular cyst of right ovary (principal); I10 Essential (primary) hypertension; M17.12 Unilateral primary osteoarthritis, left knee; F40.240 Claustrophobia; F41.9 Anxiety disorder, unspecified; G43.909 Migraine, unspecified, not intractable, without status migrainosus; E28.2 Polycystic ovarian syndrome; Z88.1 Allergy status to other antibiotic agents; Z88.2 Allergy status to sulfonamides; Z79.899 Other long term (current) drug therapy; Z90.710 Acquired absence of both cervix and uterus
CPT/HCPCS: 36415; 58661; 85027; 86850; 86900; 86901; 88305; J1100; J1170; J1885; J2250; J2370; J2405; J3010

== ENCOUNTER → 2019-09-14 | Outpatient (REF) | payer BC ==
[~2019-09-14] MED LIST changes: -LR 1,000 ML IV ONE
== END ==
LOC: M LAB REF 16:16
PROVIDERS: ATTEND Physician Assistant
DX: N39.0 Urinary tract infection, site not specified (principal)

== ENCOUNTER → 2019-09-27 | Outpatient (REF) | payer BC | LOC: M LAB REF 13:43 | PROVIDERS: ATTEND Obstetrics & Gynecology | DX: R30.0 Dysuria (principal) ==

== ENCOUNTER → 2019-10-02 | Outpatient (REF) | payer BC | LOC: M LAB REF 16:38 | PROVIDERS: ATTEND Obstetrics & Gynecology | DX: R30.0 Dysuria (principal) ==

== ENCOUNTER → 2020-01-19 | Outpatient (REF) | LOC: M LAB 09:22 | PROVIDERS: ATTEND Nurse Practitioner Adult Health | DX: Z02.9 Encounter for administrative examinations, unspecified (principal) ==

== ENCOUNTER → 2020-02-08 | Outpatient (REF) | payer BC | LOC: M LAB REF 12:20 | PROVIDERS: ATTEND Physician Assistant | DX: N39.0 Urinary tract infection, site not specified (principal) ==

== ENCOUNTER → 2020-02-14 | Outpatient (REF) | payer BC | LOC: M LAB REF 19:08 | PROVIDERS: ATTEND Physician Assistant | DX: R30.0 Dysuria (principal) ==

== ENCOUNTER → 2020-02-16 | Outpatient (CLI) | payer BC ==
--- NOTE | 2020-02-16 10:48 | REP ---
RENAL ULTRASOUND: Real-time sonographic evaluation of the kidneys is performed. Kidneys are normal in size and echotexture, right kidney measuring 11.8 x 5.7 x 4.3 cm and left kidney 12.0 x 4.4 x 5.3 cm. There is no hydronephrosis, renal mass or evidence of renal stone bilaterally. Urinary bladder is not well distended. Ureteral jets could not be seen in the urinary bladder with Doppler color evaluation. IMPRESSION: Negative renal ultrasound. Electronically Signed by Long Ma MD 02/16/2020 10:56 A
== END ==
LOC: M RAD 09:33
PROVIDERS: ATTEND Physician Assistant
DX: N39.0 Urinary tract infection, site not specified (principal); M54.9 Dorsalgia, unspecified

== ENCOUNTER → 2020-03-18 | Outpatient (REF) | payer BC ==
[2020-03-18 13:02] LABS: APPEARANCE, URINE CLEAR (CLEAR); BACTERIA, URINE AUTO NEGATIVE (NEGATIVE); BILIRUBIN, URINE AUTO NEGATIVE (NEGATIVE); BLOOD, URINE BLOOD NEGATIVE (NEGATIVE); COLOR, URINE YELLOW (YELLOW); GLUCOSE, URINE (UA) AUTO NEGATIVE (NEGATIVE); KETONE, URINE AUTO NEGATIVE (NEGATIVE); LEUKOCYTE ESTERASE, URINE AUTO NEGATIVE (NEGATIVE); MUCUS, URINE SMALL (NEGATIVE); NITRITE, URINE AUTO NEGATIVE (NEGATIVE); PROTEIN, URINE AUTO NEGATIVE (NEGATIVE); RBC, URINE AUTO 0 /HPF (0-3); SPECIFIC GRAVITY URINE AUTO 1.005 (1.002-1.035); SQUAMOUS EPITHELIAL CELL UR AU 0 /HPF (0-6); UROBILINOGEN, URINE AUTO 0.2 mg/dL (0.0-2.0); WBC, URINE AUTO 0 /HPF (0-3)
== END ==
LOC: M LAB REF 12:13
PROVIDERS: ATTEND Physician Assistant Medical
DX: N39.0 Urinary tract infection, site not specified (principal)

== ENCOUNTER → 2020-06-10 | Outpatient (REF) | payer BC ==
[2020-07-05 21:55] LABS: APPEARANCE, URINE CLEAR (CLEAR); BACTERIA, URINE AUTO 1+ (NEGATIVE); BILIRUBIN, URINE AUTO NEGATIVE (NEGATIVE); BLOOD, URINE BLOOD NEGATIVE (NEGATIVE); COLOR, URINE STRAW (YELLOW); GLUCOSE, URINE (UA) AUTO NEGATIVE (NEGATIVE); KETONE, URINE AUTO NEGATIVE (NEGATIVE); LEUKOCYTE ESTERASE, URINE AUTO NEGATIVE (NEGATIVE); MUCUS, URINE SMALL (NEGATIVE); NITRITE, URINE AUTO NEGATIVE (NEGATIVE); PROTEIN, URINE AUTO NEGATIVE (NEGATIVE); RBC, URINE AUTO 0 /HPF (0-3); SPECIFIC GRAVITY URINE AUTO 1.003 (1.002-1.035); SQUAMOUS EPITHELIAL CELL UR AU 0 /HPF (0-6); UROBILINOGEN, URINE AUTO 0.2 mg/dL (0.0-2.0); WBC, URINE AUTO 0 /HPF (0-3)
== END ==
LOC: M LAB REF 08:44
PROVIDERS: ATTEND Physician Assistant Medical
DX: N39.0 Urinary tract infection, site not specified (principal)

== ENCOUNTER → 2020-06-20 | Outpatient (REF) | payer BC ==
[2020-07-19 23:44] LABS: ERYTHROCYTE SEDIMENTATION RATE 23 mm/hr (0-20); HEMATOCRIT 41.8 % (36.0-47.0); MEAN CORPUSCULAR HEMOGLOBIN 26.9 pg (27.0-33.0); MEAN CORPUSCULAR HGB CONC 31.1 g/dl (32.0-36.5); MEAN CORPUSCULAR VOLUME 86.4 fl (80.0-96.0); PLATELET COUNT, AUTOMATED 325 10^3/uL (150-450); RED BLOOD COUNT 4.84 10^6/uL (4.00-5.40); WHITE BLOOD COUNT 7.6 10^3/uL (4.0-10.0)
[2020-08-04 11:15] LABS: ALBUMIN 4.3 GM/DL (3.2-5.2); ALT/SGPT 24 U/L (12-78); BILIRUBIN,TOTAL 0.3 MG/DL (0.2-1.0); BLOOD UREA NITROGEN 13 MG/DL (7-18); C REACTIVE PROTEIN QUANTITATIV 1.84 MG/DL (0.00-0.30); CARBON DIOXIDE LEVEL 25 MEQ/L (21-32); CHLORIDE LEVEL 110 MEQ/L (98-107); CREATININE FOR GFR 0.95 MG/DL (0.55-1.30); GLOMERULAR FILTRATION RATE > 60.0 (>60); GLUCOSE, FASTING 86 MG/DL (70-100); SODIUM LEVEL 139 MEQ/L (136-145); TOTAL PROTEIN 7.4 GM/DL (6.4-8.2)
== END ==
LOC: M SFHCPLAZ 10:28
PROVIDERS: ATTEND Physician Assistant
DX: R53.83 Other fatigue (principal); M79.10 Myalgia, unspecified site

== ENCOUNTER → 2020-08-05 | Outpatient (CLI) | payer BC ==
[2020-08-05 14:20] LABS: HEMATOCRIT 40.8 % (36.0-47.0); MEAN CORPUSCULAR HEMOGLOBIN 26.9 pg (27.0-33.0); MEAN CORPUSCULAR HGB CONC 31.9 g/dl (32.0-36.5); MEAN CORPUSCULAR VOLUME 84.3 fl (80.0-96.0); PLATELET COUNT, AUTOMATED 341 10^3/uL (150-450); RED BLOOD COUNT 4.84 10^6/uL (4.00-5.40); WHITE BLOOD COUNT 8.7 10^3/uL (4.0-10.0)
[2020-08-05 14:57] LABS: ERYTHROCYTE SEDIMENTATION RATE 28 mm/hr (0-20)
[2020-08-05 15:15] LABS: RHEUMATOID FACTOR QUANT < 10.0 IU/ML (<15.0)
[2020-08-06 16:22] LABS: ANTINUCLEAR ANTIBODIES DIRECT Negative (Negative)
== END ==
LOC: M PLALAB 13:10
PROVIDERS: ATTEND Physician Assistant
DX: M25.50 Pain in unspecified joint (principal)

== ENCOUNTER → 2020-10-16 | Outpatient (REF) | payer BC | LOC: M SFHCPLAZ 13:26 | PROVIDERS: ATTEND Physician Assistant | DX: M54.5 Low back pain (principal) ==

== ENCOUNTER → 2020-11-06 | Outpatient (REF) | payer BC ==
[2020-11-07 18:09] LABS: FREE KAPPA LIGHT CHAINS SERUM 12.4 mg/L (3.3-19.4); FREE LAMBDA LIGHT CHAINS SERUM 10.8 mg/L (5.7-26.3); KAPPA/LAMBDA RATIO SERUM 1.15 (0.26-1.65)
== END ==
LOC: M PLALAB 09:28
PROVIDERS: ATTEND Physician Assistant
DX: M54.5 Low back pain (principal)

== ENCOUNTER → 2020-12-19 | Outpatient (REF) | payer BC ==
[~2020-12-19] MED LIST changes: +HYDR-3490 PO; -HYDR25TAB PO; -LISI40TA PO; +LISI40TA4 PO
== END ==
LOC: M SFHCPLAZ 12:58
PROVIDERS: ATTEND Physician Assistant
DX: R51.9 Headache, unspecified (principal); R68.83 Chills (without fever)

== ENCOUNTER → 2021-01-01 | Outpatient (REF) | payer BC ==
[2021-01-01 16:11] LABS: BASO # 0.1 10^3/uL (0.0-0.2); BASO % 0.9 % (0.0-1.0); EOS # 0.3 10^3/uL (0.0-0.5); EOS % 3.2 % (0.0-3.0); HEMATOCRIT 42.1 % (36.0-47.0); LYMPH # 2.8 10^3/uL (1.5-5.0); MEAN CORPUSCULAR HEMOGLOBIN 26.3 pg (27.0-33.0); MEAN CORPUSCULAR HGB CONC 30.9 g/dl (32.0-36.5); MEAN CORPUSCULAR VOLUME 85.2 fl (80.0-96.0); MONO # 0.5 10^3/uL (0.0-0.8); MONO % 5.9 % (2.0-8.0); NEUTROPHILS % 57.7 % (36.0-66.0); PLATELET COUNT, AUTOMATED 346 10^3/uL (150-450); RED BLOOD COUNT 4.94 10^6/uL (4.00-5.40); WHITE BLOOD COUNT 8.7 10^3/uL (4.0-10.0)
[2021-01-01 17:08] LABS: ERYTHROCYTE SEDIMENTATION RATE 24 mm/hr (0-20)
[2021-01-03 13:10] LABS: Lyme Disease IgG/IgM Antibodie <0.91 ISR (0.00-0.90); Lyme Disease IgM Ab Quantitati <0.80 index (0.00-0.79)
== END ==
LOC: M SFHCPLAZ 15:25
PROVIDERS: ATTEND Physician Assistant
DX: R53.83 Other fatigue (principal); M25.562 Pain in left knee

== ENCOUNTER 2021-02-22 05:24 | Emergency (ER) | payer BC ==
[~2021-02-22] VITALS: Ht 172.7 cm; Wt 137.5 kg
[2021-02-22] MEDS ORDERED: DICL50TAB (05:39)
[2021-02-22] MEDS ORDERED: PRED20TA (05:39)
[2021-02-22] MEDS ORDERED: ESTR62CR (05:39)
[2021-02-22] MEDS ORDERED: NORE5TAB (05:39)
[2021-02-22] MEDS ORDERED: TOPI50TA9 (05:39)
[2021-02-22] MEDS ORDERED: METH-1164 (05:39)
[2021-02-22] MEDS ORDERED: HYDR-3363 (05:39)
[2021-02-22] MEDS ORDERED: methylPREDNISolone 125MG 2ML VIAL IM ONE (06:25)
[2021-02-22] MEDS ORDERED: diazePAM 10MG/2ML SYRINGE (J3360 PER 5MG) IV ONE (06:40)
[2021-02-22 06:48] LABS: BASO # 0.1 10^3/uL (0.0-0.2); BASO % 0.4 % (0.0-1.0); EOS # 0.1 10^3/uL (0.0-0.5); EOS % 0.9 % (0.0-3.0); HEMATOCRIT 39.1 % (36.0-47.0); HEMOGLOBIN 12.6 g/dl (12.0-15.5); LYMPH # 4.1 10^3/uL (1.5-5.0); LYMPH % 35.7 % (24.0-44.0); MEAN CORPUSCULAR HEMOGLOBIN 27.3 pg (27.0-33.0); MEAN CORPUSCULAR HGB CONC 32.2 g/dl (32.0-36.5); MEAN CORPUSCULAR VOLUME 84.8 fl (80.0-96.0); MONO # 0.7 10^3/uL (0.0-0.8); MONO % 6.4 % (2.0-8.0); NEUTROPHILS # 6.4 10^3/uL (1.5-8.5); NEUTROPHILS % 56.1 % (36.0-66.0); PLATELET COUNT, AUTOMATED 320 10^3/uL (150-450); RED BLOOD COUNT 4.61 10^6/uL (4.00-5.40); WHITE BLOOD COUNT 11.4 10^3/uL (4.0-10.0)
[2021-02-22 07:09] LABS: ERYTHROCYTE SEDIMENTATION RATE 14 mm/hr (0-20)
[2021-02-22 07:13] LABS: C REACTIVE PROTEIN QUANTITATIV < 0.30 MG/DL (0.00-0.30)
[2021-02-22] MEDS ORDERED: POTASSIUM CHLORIDE 10 MEQ SR TABLET PO ONE (07:30)
[2021-02-22] MEDS ORDERED: KCL 10MEQ/100ML SWI (KRUN) 10 MEQ in IV 1 EA IV ONE (07:30)
[2021-02-22 07:41] LABS: MAGNESIUM LEVEL 2.2 MG/DL (1.8-2.4)
--- NOTE | 2021-02-22 07:47 | REPVR ---
PROCEDURE INFORMATION: Exam: CT Lumbar Spine Without Contrast Exam date and time: 02/22/2021 6:25 AM Age: 35 years old Clinical indication: Low back pain; Additional info: Low back pain into L buttock tingling L foot TECHNIQUE: Imaging protocol: Computed tomography images of the lumbar spine without contrast. Radiation optimization: All CT scans at this facility use at least one of these dose optimization techniques: automated exposure control; mA and/or kV adjustment per patient size (includes targeted exams where dose is matched to clinical indication); or iterative reconstruction. COMPARISON: No relevant prior studies available. FINDINGS: Vertebrae: There is normal alignment of the visualized spine. Vertebral body heights are normal. There is no evidence of acute fracture. Discs/Spinal canal/Neural foramina: There is narrowing of the L4-L5 disc, a disc bulge and a large left paracentral disc protrusion, resulting in stenosis of the spinal canal. The neural foramen are patent bilaterally at L4-L5. The L5-S1 disc is narrowed and there is a small bulge of the disc, not resulting in significant central or foraminal stenosis. Soft tissues: The paraspinous soft tissues appear unremarkable. There is nonspecific edema within the subcutaneous tissues in the posterior midline throughout the lumbar region. IMPRESSION: Large left paracentral disc protrusion at L4-L5 resulting in stenosis of the spinal canal. Electronically signed by: Sepideh Cowan On 02/22/2021 07:47:57 AM
[2021-02-22] MEDS ORDERED: VALI5TAB PO (08:16)
[2021-02-22 08:29] VITALS: BP 138/93
== END 2021-02-22 09:16 | disposition home or self-care (01) ==
LOC: M ED 05:24
DX: M51.27 Other intervertebral disc displacement, lumbosacral region (principal); M48.07 Spinal stenosis, lumbosacral region; M25.552 Pain in left hip; E87.6 Hypokalemia; I10 Essential (primary) hypertension; E28.2 Polycystic ovarian syndrome; F41.9 Anxiety disorder, unspecified; Z87.442 Personal history of urinary calculi; Z79.899 Other long term (current) drug therapy; Z88.2 Allergy status to sulfonamides; Z88.1 Allergy status to other antibiotic agents; Z88.8 Allergy status to other drugs, medicaments and biological substances
CPT/HCPCS: 72131; 80047; 83735; 85025; 85652; 86140; 96365; 96372; 96375; 99284; J2930; J3360

== ENCOUNTER → 2021-02-25 | Outpatient (REF) | payer BC ==
[~2021-02-25] MED LIST changes: +DICL50TAB; +ESTR62CR; +HYDR-3363; +METH-1164; +NORE5TAB; +PRED20TA; +TOPI50TA9; +VALI5TAB PO
[2021-02-25 18:02] LABS: C REACTIVE PROTEIN QUANTITATIV 2.22 MG/DL (0.00-0.30); MAGNESIUM LEVEL 2.6 MG/DL (1.8-2.4); THYROID STIMULATING HORMONE 1.43 uIU/ML (0.358-3.740)
[2021-02-25 18:03] LABS: TOTAL 25(OH) VITAMIN D 22.9 NG/ML (30.0-100.0)
== END ==
LOC: M SFHCRHEU 10:17
PROVIDERS: ATTEND Internal Medicine
DX: R53.83 Other fatigue (principal); M54.9 Dorsalgia, unspecified; M25.40 Effusion, unspecified joint

== ENCOUNTER → 2021-03-03 | Outpatient (REF) | payer BC ==
[2021-03-03 15:36] LABS: BLOOD UREA NITROGEN 15 MG/DL (7-18); CALCIUM LEVEL 9.4 MG/DL (8.5-10.1); CARBON DIOXIDE LEVEL 24 MEQ/L (21-32); CHLORIDE LEVEL 108 MEQ/L (98-107); CREATININE FOR GFR 0.94 MG/DL (0.55-1.30); GLOMERULAR FILTRATION RATE > 60.0 (>60); GLUCOSE, FASTING 98 MG/DL (70-100); POTASSIUM SERUM 3.9 MEQ/L (3.5-5.1); SODIUM LEVEL 140 MEQ/L (136-145)
== END ==
LOC: M SFHCPLAZ 13:23
PROVIDERS: ATTEND Physician Assistant
DX: E87.6 Hypokalemia (principal)

== ENCOUNTER → 2021-03-28 | Outpatient (CLI) | payer BC ==
--- NOTE | 2021-03-30 06:31 | REPPI ---
INDICATION: M54.9 DORSALGIA COMPARISON: None. TECHNIQUE: AP, lateral, bilateral oblique and sunrise views. FINDINGS: Right knee: Findings include increased sclerosis along the tibial plateau with medial joint space narrowing and early marginal osteophyte formation. No acute fracture or dislocation. No obvious effusion. Left knee: Findings include increased sclerosis along the tibial plateau with significant medial joint space narrowing and moderate bilateral osteophytosis. No acute fracture or dislocation. No effusion. IMPRESSION: Moderate bilateral osteoarthritic degenerative changes (left greater than right). <Electronically signed by Navjot Aguila > 03/30/21 0627
--- NOTE | 2021-03-30 06:32 | REPPI ---
INDICATION: M54.9 DORSALGIA. COMPARISON: None. TECHNIQUE: Two AP views of the pelvis FINDINGS: Osseous structures, joint spaces, and surrounding soft tissues are essentially symmetric and age-appropriate. No overt arthritic degenerative changes appreciated. No abnormal calcifications. No foreign body. IMPRESSION: Normal age-appropriate pelvic radiographs. <Electronically signed by Navjot Aguila > 03/30/21 0628
--- NOTE | 2021-03-30 06:34 | REPPI ---
INDICATION: M54.9 DORSALGIA COMPARISON: None. TECHNIQUE: Internal rotation, external rotation, and Y view right and left shoulder. FINDINGS: Right shoulder demonstrates normal age-appropriate appearance to the acromioclavicular and glenohumeral joints. No periarticular calcifications or loose bodies. Subacromial space is normal. Surrounding soft tissues are normal. No acute fracture or dislocation. Left shoulder demonstrates normal age-appropriate appearance to the acromioclavicular joint and glenohumeral joints. Subtle inferior sloping along the distal aspect of the acromion process with minimally decreased subacromial space to approximately 8.5 mm should be correlated clinically. No periarticular calcifications or loose bodies. No acute fracture or dislocation. IMPRESSION: Age-related changes as noted above. <Electronically signed by Navjot Aguila > 03/30/21 1314
== END ==
LOC: M PLAIMG 10:52
PROVIDERS: ATTEND Internal Medicine
DX: M54.9 Dorsalgia, unspecified (principal); M25.40 Effusion, unspecified joint

== ENCOUNTER → 2021-03-28 | Outpatient (CLI) | payer BC ==
--- NOTE | 2021-03-31 16:06 | SLEEPHOME ---
DIAGNOSTIC HOME SLEEP STUDY DATE: 03/28/2021 ORDERED BY: Hillary Huddleston M.D. Diagnostic home sleep testing was performed due to concern for the obstructive sleep apnea syndrome in this patient with fatigue. For testing, a nocturnal T3 respiratory monitoring device was used. Continuous record was made of pulse, oxygen saturation, air flow, chest and abdominal strain, and body position. 9 hours and 59 minutes of data were reviewed. There were 7 hours and 44 minutes marked as time in bed. During the interval marked time in bed, there were only 13 respiratory events identified of 10 seconds in duration or greater for a respiratory event index of only 1.7. Baseline pulse rate 68. Pulse rate range 55 to 108. Baseline saturation was 95%. On one occasion, the saturation fell briefly below 90% to 89%. Testing was performed in both the supine and non-supine positions. IMPRESSION: Normal diagnostic home sleep test with minor respiratory patterning.
== END ==
LOC: M SLEEP HO 09:43
PROVIDERS: ATTEND Internal Medicine
DX: R53.83 Other fatigue (principal)

== ENCOUNTER → 2021-04-21 | Outpatient (REF) | payer BC ==
[2021-04-21 18:57] LABS: BLOOD UREA NITROGEN 14 MG/DL (7-18); CALCIUM LEVEL 9.5 MG/DL (8.5-10.1); CARBON DIOXIDE LEVEL 21 MEQ/L (21-32); CHLORIDE LEVEL 111 MEQ/L (98-107); CREATININE FOR GFR 0.82 MG/DL (0.55-1.30); GLOMERULAR FILTRATION RATE > 60.0 (>60); GLUCOSE, FASTING 93 MG/DL (70-100); SODIUM LEVEL 142 MEQ/L (136-145)
== END ==
LOC: M PLALAB 14:55
PROVIDERS: ATTEND Physician Assistant
DX: M79.605 Pain in left leg (principal)

== ENCOUNTER → 2021-04-30 | Outpatient (CLI) | payer BC ==
--- NOTE | 2021-04-30 20:29 | REPVR ---
PROCEDURE INFORMATION: Exam: MR Pelvis Without Contrast, Sacrum Exam date and time: 04/30/2021 7:29 PM Age: 35 years old Clinical indication: Difficulty in walking and other: Dorsalgia; Additional info: Dorsalgia, sacroiliitis TECHNIQUE: Imaging protocol: Magnetic resonance images of the pelvis without intravenous contrast. Exam focused on the sacrum. COMPARISON: CT ABD PELVIS W/O CONTRAST 09/04/2019 2:57 PM FINDINGS: Bones/joints: The L4-L5 level demonstrates a large left paracentral disc extrusion causing moderate impression on the anterior left side of the thecal sac and impression on the left L5 nerve root. There is some sclerosis of the SI joints but symmetric. The no definite pelvic mass is seen. Soft tissues: Unremarkable. IMPRESSION: Large left paracentral disc extrusion L4-L5 impressing on the left L5 nerve root. This is probably present on the CT scan of 2019 as well. Electronically signed by: Tod Barnett On 04/30/2021 20:29:43 PM
== END ==
LOC: M RAD 16:54
PROVIDERS: ATTEND Internal Medicine
DX: M51.26 Other intervertebral disc displacement, lumbar region (principal)

== ENCOUNTER → 2021-07-03 | Outpatient (REF) | payer BC | LOC: M SFHCPLAZ 12:59 | PROVIDERS: ATTEND Physician Assistant | DX: R53.81 Other malaise (principal) ==

== ENCOUNTER → 2021-10-08 | Outpatient (CLI) | payer BC ==
[2021-10-08 12:22] LABS: ALBUMIN 3.5 GM/DL (3.2-5.2); ALT/SGPT 36 U/L (12-78); BILIRUBIN,TOTAL 0.2 MG/DL (0.2-1.0); BLOOD UREA NITROGEN 14 MG/DL (7-18); CALCIUM LEVEL 9.2 MG/DL (8.5-10.1); CARBON DIOXIDE LEVEL 25 MEQ/L (21-32); CHLORIDE LEVEL 113 MEQ/L (98-107); CHOLESTEROL LEVEL 176 MG/DL (<200); CHOLESTEROL RISK RATIO 3.666 (<5); CREATININE FOR GFR 0.81 MG/DL (0.55-1.30); GLOMERULAR FILTRATION RATE > 60.0 (>60); GLUCOSE, FASTING 96 MG/DL (70-100); HDL CHOLESTEROL 48 MG/DL (>40); LDL CHOLESTEROL 111 MG/DL (<100); NON-HDL-C 128 MG/DL; POTASSIUM SERUM 4.1 MEQ/L (3.5-5.1); SODIUM LEVEL 144 MEQ/L (136-145); TOTAL 25(OH) VITAMIN D 36.8 NG/ML (30.0-100.0); TOTAL PROTEIN 6.6 GM/DL (6.4-8.2); TRIGLYCERIDES LEVEL 85 MG/DL (<150)
== END ==
LOC: M PLALAB 07:54
PROVIDERS: ATTEND Family Medicine
DX: I11.9 Hypertensive heart disease without heart failure (principal); E55.9 Vitamin D deficiency, unspecified; Z13.220 Encounter for screening for lipoid disorders